=== PATIENT | female | born 1965 | race Caucasian/White ===

== ENCOUNTER 2024-07-20 09:18 | Inpatient (IN) ==
[2024-07-20] MEDS ORDERED: IOPAMIDOL 100 ML BOTTLE IV ONE (09:19)
[2024-07-20] MEDS: PIPERACILLIN SODIUM/TAZOBACTAM 4.5 GM in DEXTROSE 5% IN WATER 50 ML IV ONE (12:29)
[2024-07-20] MEDS: morphine 4 MG/ML VIAL IV ONE (12:29)
[2024-07-20] MEDS: ONDANSETRON 4 MG/2 ML VIAL IV ONE (12:29)
[2024-07-20] MEDS ORDERED: PIPERACILLIN SODIUM/TAZOBACTAM 3.375 GM in DEXTROSE 5% IN WATER 100 ML IV SCH (15:15)
[2024-07-20] MEDS: HYDROmorphone 1 MG/ML SYRINGE IV PRN (15:59)
[2024-07-20] MEDS: ACETAMINOPHEN 1,000 MG/100 ML BAG IV SCH (16:00)
[2024-07-20] MEDS: 0.9 % SODIUM CHLORIDE 1,000 ML IV SCH (16:01)
[2024-07-20] MEDS: ONDANSETRON 4 MG/2 ML VIAL IV PRN (16:40)
[2024-07-20] MEDS ORDERED: HYDROmorphone 0.5 MG/0.5 ML SYRINGE IV PRN (17:23)
[2024-07-20] MEDS: PIPERACILLIN SODIUM/TAZOBACTAM 3.375 GM in DEXTROSE 5% IN WATER 100 ML IV SCH (17:34)
[2024-07-20 20:42] LABS: ALT/SGPT 18 U/L (<40); AST/SGOT 31 U/L (<32); Albumin 4.5 gm/dL (3.2-5.2); Albumin/Globulin Ratio 1.8 (1.0-2.3); Alkaline Phosphatase 81 U/L (39-117); Blood Urea Nitrogen 14 mg/dL (6-20); Calcium 9.5 mg/dL (8.6-10.4); Carbon Dioxide 23 mmol/L (22-30); Chloride 101 mmol/L (96-108); Globulin 2.5 gm/dL (2.2-3.7); Glomerular Filtration Rate 55; Glucose 93 mg/dL (70-105); Potassium 3.8 mmol/L (3.3-5.1); Sodium 136 mmol/L (133-145)
[2024-07-20 20:43] LABS: Basophils # (Auto) 0.02 K/mcL (0.00-0.30); Basophils % (Auto) 0.1 % (0.0-2.0); Eosinophils # (Auto) 0 K/mcL (0.00-0.70); Eosinophils % (Auto) 0 % (0.0-7.0); Hematocrit 44.7 % (34.1-44.9); Hemoglobin 14.5 g/dL (11.2-15.7); Lymphocytes % (Auto) 5.9 % (15.5-49.0); Mean Corpuscular HGB Conc 32.4 g/dL (31.0-36.0); Mean Platelet Volume 10.7 fL (8.8-12.5); Monocytes % (Auto) 6.6 % (1.0-12.0); Neutrophils % (Auto) 87.1 % (38.0-78.0); Platelet Count 240 K/mcL (140-440); RBC 4.91 M/mcL (3.59-5.38); Red Cell Distribution Width 14.7 % (11.5-14.5); WBC 13.6 K/mcL (4.5-11.0)
[2024-07-20 21:44] LABS: Appearance,Urine CLEAR (Clear); Bacteria,Urine FEW /hpf (0); Bilirubin,Urine Negative (Negative); Color,Urine STRAW; Glucose,Urine (UA) Negative (Negative); Ketones,Urine 5 mg/dL (Negative); Leukocyte Esterase,Urine Negative /uL (Negative); Nitrate,Urine Negative (Negative); Protein,Urine Negative (Negative); Specific Gravity,Urine 1.003 (1.000-1.035); Urine Blood 0.03 mg/dL (Negative); Urine RBC < 1 /hpf (0-3); Urine Squamous Epithelial Cell < 1 /hpf (0-4); Urine WBC 2 /hpf (0-4); Urobilinogen,Urine Negative
[2024-07-21 06:02] LABS: Basophils # (Auto) 0.03 K/mcL (0.00-0.30); Basophils % (Auto) 0.3 % (0.0-2.0); Eosinophils # (Auto) 0.02 K/mcL (0.00-0.70); Eosinophils % (Auto) 0.2 % (0.0-7.0); Hematocrit 37.2 % (34.1-44.9); Hemoglobin 12.4 g/dL (11.2-15.7); Lymphocytes # (Auto) 1.33 K/mcL (1.50-4.80); Lymphocytes % (Auto) 12.1 % (15.5-49.0); Mean Cell Volume 88.8 fL (80.0-100.0); Mean Corpuscular HGB Conc 33.3 g/dL (31.0-36.0); Mean Platelet Volume 10.2 fL (8.8-12.5); Monocytes # (Auto) 0.92 K/mcL (0.10-0.90); Monocytes % (Auto) 8.4 % (1.0-12.0); Neutrophils % (Auto) 78.8 % (38.0-78.0); Platelet Count 223 K/mcL (140-440); RBC 4.19 M/mcL (3.59-5.38); Red Cell Distribution Width 14.7 % (11.5-14.5)
[2024-07-21 06:32] LABS: ALT/SGPT 26 U/L (<40); AST/SGOT 27 U/L (<32); Albumin 3.4 gm/dL (3.2-5.2); Albumin/Globulin Ratio 1.6 (1.0-2.3); Alkaline Phosphatase 75 U/L (39-117); Bilirubin,Direct 0.4 mg/dL (<0.3); Blood Urea Nitrogen 16 mg/dL (6-20); Carbon Dioxide 21 mmol/L (22-30); Chloride 103 mmol/L (96-108); Globulin 2.1 gm/dL (2.2-3.7); Glomerular Filtration Rate 50; Glucose 73 mg/dL (70-105); Lactate Dehydrogenase 132 U/L (135-225); Phosphorous 2.9 mg/dL (2.5-4.5); Potassium 4.1 mmol/L (3.3-5.1); Sodium 136 mmol/L (133-145); Triglycerides 57 mg/dL (<150); Uric Acid 4.2 mg/dL (2.5-8.0)
[2024-07-21] MEDS: LISINOPRIL 20 MG TABLET PO SCH (09:20)
[2024-07-21] MEDS: predniSONE 5 MG TABLET PO SCH (09:20)
[2024-07-21] MEDS: ESTRADIOL 1 MG TABLET PO SCH (09:20)
[2024-07-21] MEDS ORDERED: fentaNYL 100 MCG/2 ML VIAL IV PRN (15:05)
[2024-07-21] MEDS ORDERED: CYCLOBENZAPRINE 10 MG TABLET PO PRN (15:11)
[2024-07-21] MEDS: ALPRAZolam 0.5 MG TABLET PO PRN (19:33)
[2024-07-21] MEDS: ALPRAZolam 0.5 MG TABLET ONE (19:36)
[2024-07-21] MEDS ORDERED: NON FORMULARY MEDICATION 1 DOSE MISCELL (Progesterone Micronized 100 mg capsule) PO SCH (21:00)
[2024-07-21] MEDS ORDERED: LISINOPRIL 20 MG TABLET PO SCH (21:00)
[2024-07-22 06:02] LABS: Basophils # (Auto) 0.03 K/mcL (0.00-0.30); Basophils % (Auto) 0.3 % (0.0-2.0); Hematocrit 37.3 % (34.1-44.9); Hemoglobin 12.4 g/dL (11.2-15.7); Lymphocytes # (Auto) 1.33 K/mcL (1.50-4.80); Lymphocytes % (Auto) 13.8 % (15.5-49.0); Mean Cell Volume 89.4 fL (80.0-100.0); Mean Corpuscular HGB Conc 33.2 g/dL (31.0-36.0); Mean Platelet Volume 9.9 fL (8.8-12.5); Monocytes % (Auto) 9.4 % (1.0-12.0); Neutrophils % (Auto) 75.3 % (38.0-78.0); Platelet Count 241 K/mcL (140-440); RBC 4.17 M/mcL (3.59-5.38); Red Cell Distribution Width 14.9 % (11.5-14.5); WBC 9.6 K/mcL (4.5-11.0)
[2024-07-22 06:26] LABS: ALT/SGPT 22 U/L (<40); AST/SGOT 25 U/L (<32); Albumin 3.3 gm/dL (3.2-5.2); Albumin/Globulin Ratio 1.5 (1.0-2.3); Alkaline Phosphatase 87 U/L (39-117); Bilirubin,Direct 0.3 mg/dL (<0.3); Bilirubin,Total 0.6 mg/dL (0.1-1.0); Blood Urea Nitrogen 9 mg/dL (6-20); Carbon Dioxide 20 mmol/L (22-30); Chloride 111 mmol/L (96-108); Globulin 2.2 gm/dL (2.2-3.7); Glomerular Filtration Rate 50; Glucose 80 mg/dL (70-105); Lactate Dehydrogenase 137 U/L (135-225); Phosphorous 1.5 mg/dL (2.5-4.5); Potassium 4.3 mmol/L (3.3-5.1); Sodium 142 mmol/L (133-145); Triglycerides 108 mg/dL (<150); Uric Acid 3.6 mg/dL (2.5-8.0)
[2024-07-22] MEDS ORDERED: oxyCODONE IR 5 MG TABLET PO PRN (07:59)
[2024-07-22] MEDS ORDERED: predniSONE 5 MG TABLET PO SCH (09:00)
[2024-07-22] MEDS ORDERED: ESTRADIOL 0.5 MG TABLET PO SCH (09:00)
[2024-07-22] MEDS: NEUTRA PHOS 1 PACKET PO SCH (12:55)
[2024-07-23 05:53] LABS: Basophils # (Auto) 0.03 K/mcL (0.00-0.30); Basophils % (Auto) 0.3 % (0.0-2.0); Eosinophils # (Auto) 0.07 K/mcL (0.00-0.70); Eosinophils % (Auto) 0.6 % (0.0-7.0); Hematocrit 38.3 % (34.1-44.9); Lymphocytes # (Auto) 1.42 K/mcL (1.50-4.80); Lymphocytes % (Auto) 12.5 % (15.5-49.0); Mean Corpuscular HGB Conc 33.9 g/dL (31.0-36.0); Mean Platelet Volume 10.1 fL (8.8-12.5); Monocytes # (Auto) 0.89 K/mcL (0.10-0.90); Monocytes % (Auto) 7.9 % (1.0-12.0); Neutrophils % (Auto) 78.4 % (38.0-78.0); Platelet Count 284 K/mcL (140-440); RBC 4.35 M/mcL (3.59-5.38); Red Cell Distribution Width 14.6 % (11.5-14.5); WBC 11.3 K/mcL (4.5-11.0)
[2024-07-23 06:29] LABS: ALT/SGPT 22 U/L (<40); AST/SGOT 25 U/L (<32); Albumin 3.6 gm/dL (3.2-5.2); Albumin/Globulin Ratio 1.6 (1.0-2.3); Alkaline Phosphatase 105 U/L (39-117); Bilirubin,Direct 0.2 mg/dL (<0.3); Bilirubin,Total 0.5 mg/dL (0.1-1.0); Blood Urea Nitrogen 6 mg/dL (6-20); Calcium 8.7 mg/dL (8.6-10.4); Carbon Dioxide 20 mmol/L (22-30); Chloride 108 mmol/L (96-108); Globulin 2.3 gm/dL (2.2-3.7); Glomerular Filtration Rate 62; Glucose 86 mg/dL (70-105); Lactate Dehydrogenase 161 U/L (135-225); Phosphorous 1.3 mg/dL (2.5-4.5); Potassium 3.8 mmol/L (3.3-5.1); Sodium 140 mmol/L (133-145); Triglycerides 141 mg/dL (<150); Uric Acid 3.5 mg/dL (2.5-8.0)
[2024-07-23] MEDS ORDERED: IOPAMIDOL 100 ML BOTTLE IV ONE (07:29)
== END 2024-07-23 14:27 | disposition home or self-care (01) | DRG 392 ==
LOC: ED 09:18 → MEDSUR 15:05
PROVIDERS: ADMIT Family Medicine Adult Medicine; ATTEND Family Medicine Adult Medicine